=== PATIENT | male | born 1970 | race African-American/Black ===

== ENCOUNTER 2017-02-23 19:27 | Emergency (ER) | payer OTHER ==
[2017-02-23 19:33] VITALS: BP 161/89
[2017-02-23] MEDS ORDERED: AMOX500C PO (20:14)
[2017-02-23] MEDS ORDERED: HYDR-971 PO (20:14)
--- NOTE | 2017-02-23 20:14 | PHYS DOC ---
Past Medical History Past Medical History: No Pertinent History Past Surgical History: Other Additional Past Surgical Histo: LEFT ANKLE WITH PINS AND SCREWS Alcohol Use: None Drug Use: None Adult General Chief Complaint Chief Complaint: DENTAL PROBLEM [facility] HPI Patient is a 46 year old female presents emergency department stating that he has having right sided dental pain up or and lower. He states his been having the pain for the last 2 days. His been taken 400 mg of ibuprofen twice a day without relief. He states that he's been using warm salt water mouth rinses as well. He states that the pain is just not gotten any better. Denies any fever, chills or any nausea vomiting denies any foul taste coming from the mouth. Patient does state he has a dentist appointment in which she has scheduled for Tuesday. Review of Systems Review of Systems Constitutional: Denies fever or chills [] Eyes: Denies change in visual acuity, redness, or eye pain [] HENT: Denies nasal congestion or sore throat. C/o dental pain Respiratory: Denies cough or shortness of breath [] Cardiovascular: No additional information not addressed in HPI [] GI: Denies abdominal pain, nausea, vomiting, bloody stools or diarrhea [] : Denies dysuria or hematuria [] Musculoskeletal: Denies back pain or joint pain [] Integument: Denies rash or skin lesions [] Neurologic: Denies headache, focal weakness or sensory changes [] Allergies Allergies Allergies Coded Allergies Type Severity Reaction Last Updated Verified No Known Drug Allergies 09/12/16 No Physical Exam Physical Exam Constitutional: Well developed, well nourished, no acute distress, non-toxic appearance. [] HENT: Normocephalic, atraumatic, bilateral external ears normal, oropharynx moist, no oral exudates, nose normal. Lateral tympanic membranes appear to be normal throat appears to be without erythematous. Patient does not appear to have dental pain or discomfort when pushing on the teeth. He does apparently have some white areas noted on the gum area on the right upper back teeth. Eyes: PERRLA, EOMI, conjunctiva normal, no discharge. [] Neck: Normal range of motion, no tenderness, supple, no stridor. [] Cardiovascular:Heart rate regular rhythm, no murmur [] Lungs & Thorax: Bilateral breath sounds clear to auscultation [] Skin: Warm, dry, no erythema, no rash. [] Back: No tenderness Extremities: No tenderness, no cyanosis, no clubbing, ROM intact, no edema. [] Neurologic: Alert and oriented X 3, normal motor function, normal sensory function, no focal deficits noted. [] Psychologic: Affect normal, judgement normal, mood normal. [] Current Patient Data Vital Signs Vital Signs Date Time Temp Pulse Resp B/P Pulse Ox O2 Delivery O2 Flow Rate FiO2 02/23/17 19:33 98.2 81 20 98 Room Air 98.2 EKG EKG [] Radiology/Procedures Radiology/Procedures [] Course & Med Decision Making Course & Med Decision Making Pertinent Labs and Imaging studies reviewed. (See chart for details) Patient was requesting an injection as he states that this is what he had when he had seen a physician at [facility] years ago. Patient will be provided with hydrocodone at discharge he will also be provided with a prescription for amoxicillin recommended keeping his appointment with his dentist on Tuesday. Also recommended him to continue to take ibuprofen 800 mg every 8 hours with food. Recommended to continue using salt water mouth rinses continue to flossing and brush teeth. Patient will be discharged home in stable condition. Patient was provided with signs and symptoms to return to the emergency department. [] Dragon Disclaimer Dragon Disclaimer This electronic medical record was generated, in whole or in part, using a voice recognition dictation system. Departure Departure Impression: Primary Impression: Pain, dental Additional Impression: Dental abscess Disposition: 01 HOME, SELF-CARE Condition: STABLE Referrals: ERENDIRA MENDOZA MD (PCP) Patient Instructions: Dental Abscess, Dental Pain, [id number] Additional Instructions: Activity as tolerated. Hydrocodone will cause drowsiness do not take any be alert and oriented. Medications as prescribed. Continue with ibuprofen 800 mg every 8 hours with food stop taking few develop an upset stomach. Warm salt water mouth rinses 4 times a day. Keep your Dental appointment in which she state you have on Tuesday. Return back to emergency prior signs symptoms that become worse. Scripts Hydrocodone/Apap 5-325 ([place] 5-325 Tablet)1 Each Tablet1 Tab PO PRN Q6HRS PRN PAIN #6 TAB Prov:TOMI COX STRATEGIC ACCOUNT EXECUTIVE 02/23/17 Amoxicillin 500 Mg Capsule1 Cap PO QID #40 CAP Prov:TOMI COX APRN 02/23/17 Problem Qualifiers TOMI COX APRN Feb 23, 2017 20:14
== END 2017-02-23 20:24 | disposition home or self-care (01) ==
LOC: ER 19:27
DX: K04.7 Periapical abscess without sinus (principal)
CPT/HCPCS: 99283

== ENCOUNTER 2022-01-02 06:56 | Emergency (ER) | payer BC, OTHER ==
[~2022-01-02] VITALS: Ht 188 cm; Wt 102.3 kg
[~2022-01-02 06:56] MED LIST: AMOX500C PO; HYDR-3164 PO
[2022-01-02 07:07] VITALS: BP 136/94
--- NOTE | 2022-01-02 07:25 | PHYS DOC ---
Past Medical History Past Medical History: No Pertinent History Past Surgical History: No Surgical History Additional Past Surgical Histo: LEFT ANKLE WITH PINS AND SCREWS Smoking Status: Never Smoker Alcohol Use: None Drug Use: None General Adult EDM: Chief Complaint: BACK PAIN OR INJURY HPI: HPI: Patient is a 51 year old male without pertinent past medical history who presents with right-sided low back pain for the past 3 days. The pain radiates down the back of his right leg. Described as sharp/burning. Pain is worse with movements. Does not recall any straining activities or trauma. No bowel/bladder dysfunction. No saddle anesthesia. No leg weakness. No fevers or chills. No history of IVDU. No immunosuppressive disorders or medications. No history of previous spinal surgery. Has not tried any medications to alleviate pain. Review of Systems: Review of Systems: Constitutional: Denies fever or chills. [] Eyes: Denies change in visual acuity. [] HENT: Denies nasal congestion or sore throat. [] Respiratory: Denies cough or shortness of breath. [] Cardiovascular: Denies chest pain or edema. [] GI: Denies abdominal pain, nausea, vomiting, bloody stools or diarrhea. [] : Denies dysuria. [] Musculoskeletal: Reports right-sided low back pain with radicular radiation. Integument: Denies rash. [] Neurologic: Denies headache, focal weakness or sensory changes. [] Psychiatric: Denies depression or anxiety. [] Heart Score: C/O Chest Pain: No Allergies: Allergies: Allergies Coded Allergies Type Severity Reaction Last Updated Verified No Known Drug Allergies 01/02/22 No Physical Exam: PE: Constitutional: Well developed, well nourished, no acute distress, non-toxic appearance. [] Cardiovascular: Regular rate Lungs & Thorax: Normal work of breathing Skin: Warm, dry, no erythema, no rash. [] Back: No tenderness or skin changes Extremities: No tenderness, no cyanosis, no clubbing, ROM intact, no edema. [] Neurologic: Alert and oriented X 3, normal motor function, normal sensory function, no focal deficits noted. [] Specifically 5/5 strength in bilateral: -Hip flexion -Knee flexion/extension -Ankle plantar/dorsiflexion -Dorsiflexion of great Psychologic: Affect normal, judgement normal, mood normal. [] Current Patient Data: Vital Signs: Vital Signs Date Time Temp Pulse Resp B/P (MAP) Pulse Ox O2 Delivery O2 Flow Rate FiO2 01/02/22 07:07 97.5 87 14 136/94 (108) 98 Room Air 97.5 EKG: EKG: [] Radiology/Procedures: Radiology/Procedures: [] Course & Med Decision Making: Course & Med Decision Making Pertinent Labs and Imaging studies reviewed. (See chart for details) Patient a 51-year-old male who presents with nontraumatic right-sided radicular lumbar pain. No back pain red flags. Motor exam is intact. No history of trauma. Do not feel that he would benefit from emergent imaging. He has not attempted any medications for his back pain. I discussed treatment with NSAID and Tylenol. Advised PCP follow-up if his symptoms are to persist. Reviewed red flag symptoms that would necessitate return to the emergency department. Patient expresses understanding of plan. Dragon Disclaimer: Dragon Disclaimer: This electronic medical record was generated, in whole or in part, using a voice recognition dictation system. Departure Departure Impression: Primary Impression: Lumbar back pain with radiculopathy affecting right lower extremity Disposition: HOME / SELF CARE / HOMELESS Condition: STABLE Referrals: ERENDIRA MENDOZA MD (PCP) Patient Instructions: Lumbosacral Radiculopathy Additional Instructions: For low back pain ibuprofen is the backbone of initial treatment. -Ibuprofen 600 mg every 6 hours. Take with food. Take for 1-2 weeks. You can also use Tylenol. -Tylenol 1000 mg every 6 hours (do not exceed 4000 mg in one day) Please take it easy but do continue to stretch and go for light walks. Please follow-up with your PCP if your symptoms persist for more than a week. They may be able to refer you to physical therapy or try other treatments. You need to return to the emergency department if you develop any of the following: -high fevers -inability to walk -weakness in your legs -bowel/bladder incontinence -numbness near your scrotum/anus THIERRY BARRERA MD Jan 02, 2022 07:25
== END 2022-01-02 07:39 | disposition home or self-care (01) ==
LOC: ER 07:20
DX: M54.16 Radiculopathy, lumbar region (principal); M79.605 Pain in left leg
CPT/HCPCS: 99283

== ENCOUNTER → 2022-03-17 | Outpatient (CLI) | payer BC ==
[~2022-03-17] MED LIST changes: +BUPIVACAINE MPF 0.5% 10 ML VIAL. INT ART ONE; +IOHEXOL 300 MG/ML 50 ML VIAL. INT ART ONE; +LIDOCAINE 1% Multi-Dose 20 ML VIAL. ID ONE; +TRIAMCINOLONE PRES.FREE 40 MG/ML VIAL. INT ART ONE
--- NOTE | 2022-03-17 16:35 | KCIC ---
EXAM: Right hip joint injection WITH Fluoroscopic guidance DATE: 03/17/2022 10:12 AM CLINICAL HISTORY: Reason: Primary OA Rt.hip. Right hip pain COMPARISON: None pertinent TECHNIQUE: The patient was informed of the indications and alternatives for this procedure as well as risks and benefits. No immediate contraindication identified. The patient provided informed, written consent. Laterality was confirmed by the entire team following a time out. Following initial Right hip joint localization, a suitable area was sterilely prepped and draped. Loc al anesthesia was administered with 1% xylocaine. With intermittent fluoroscopic observation, a 22-ga uge spinal needle was advanced into the Right hip joint sheath/capsule with confirmation of intra-syn ovial position with infusion of less than 1 cc iodinated contrast. Subsequent infusion solution conta ining 4mL Lidocaine 1 percent, 4mL Bupivacaine 0.25 percent,40mg Kenalog. Hemostasis with local press ure. Local clinical exam negative for immediate complication. Patient informed re local potential signs or symptoms that may indicate need to return to ER/Ordering physician for further evaluation. Patient informed re precautionary measures after intra-synovial in jection of anesthetic. Patient informed re potential for short term increase local symptomatology due to steroid flare. Patient expressed understanding. Performing Physicians: Dr. Divine Galarza Blood Loss: 0 cc Pre-procedural Pain Scale: 8 Post-procedural Pain Scale: 6 Total Fluoroscopy time: 5 Seconds Total spot images taken: 0 IMPRESSION: Successful intra-synovial injection Right hip joint with steroid and anesthetic per clinical request. Electronically signed by: Tim Galarza MD (03/17/2022 4:32 PM) [id number]
== END | disposition home or self-care (01) ==
LOC: KCIC 10:00
PROVIDERS: ATTEND Physician Assistant
DX: M16.11 Unilateral primary osteoarthritis, right hip (principal); Z79.899 Other long term (current) drug therapy; Z98.890 Other specified postprocedural states
CPT/HCPCS: 20610; 77002; J3301; J3490; Q9967